=== PATIENT | male | born 1990 ===

== ENCOUNTER 2024-03-13 00:52 | Day surgery (SDC) | payer OTHER, SELFPAY ==
[2024-03-07 16:10] VITALS: BMI 34.1
--- NOTE | 2024-03-12 10:04 | P.PNAN_ITS ---
Anes - Initial Pre Proc Eval Procedure: Operation Date: 03/13/24 09:00 Proposed Procedures p Esophagogastroduodenoscopy & Colonoscopy - Jose Suggs DO Date/Time: 03/12/24 10:04 Surgeon: Jose Suggs DO Pre Op Diagnosis: IBD, weight loss, abdominal pain Patient Data Age: 33 Gender: M Height: 1.85 m Weight: 117.25 kg Allergies Allergy/AdvReac Type Severity Reaction Status Date / Time No Known Allergies Allergy Verified 03/13/24 07:44 Home Medications ?Medication ?Instructions ?Recorded ?Confirmed ?Type aspirin 81 mg tablet,delayed 81 mg PO DAILY 03/07/24 03/13/24 History release (Adult Low Dose Aspirin) atorvastatin 20 mg tablet 20 mg PO HS 03/07/24 03/13/24 History hydrochlorothiazide 12.5 mg capsule 12.5 mg PO HS 03/07/24 03/13/24 History lisinopril 10 mg tablet 10 mg PO DAILY 03/07/24 03/13/24 History meloxicam 15 mg tablet 15 mg PO DAILY 03/07/24 03/13/24 History omeprazole 20 mg capsule,delayed 20 mg PO DAILY 03/07/24 03/13/24 History release sennosides 8.6 mg capsule (senna) 8.6 mg PO BID 03/07/24 03/13/24 History triamcinolone acetonide 0.1 % 1 applic topical BID 03/07/24 03/13/24 History topical cream Patient hx anesthesia problems: none Family hx anesthesia problems: none Results Review: All pre-operative results and documents have been reviewed as part of the pre- operative evaluation. [facility] Past Medical History Medical History (Updated 03/13/24 @ 08:06 by Jose Suggs DO) GERD (gastroesophageal reflux disease) Hypertension Hyperlipidemia Social History Social History Living arrangements: incarcerated Anes - Eval Final PreProcedure Day of Procedure 03/12/24 10:04 Patient weight: obese Heart: regular rate and rhythm Lungs: clear to auscultation Airway: Mallampati scale class II Neurological: alert and oriented Last oral intake: >/= 8 hours ASA classification: III Emergent: no Anesthetic plan: proceed Anesthesia type and monitoring: general GIVS and standard monitoring Results Review: All pre-operative results and documents have been reviewed as part of the pre- operative evaluation. Informed Consent: The patient's anesthetic plan and its attendant risks and benefits were discussed with the patient/family/POA. Questions were solicited and answers provided to the satisfaction of the patient/family/POA.
[2024-03-13 07:38] VITALS: BP 161/92; PULSE 80; RESP 20; TEMP 35.9; O2SAT 97; BMI 36.3
--- NOTE | 2024-03-13 08:04 | PM.IMHP ---
H&P: HPI History of Present Illness Date/Time: 03/13/24 08:04 Chief Complaint: Abdominal pain, GERD Narrative: this is a 33-year-old man who presents with right upper quadrant pain. He has also been experiencing some GERD symptoms and takes Prilosec. He has never had a colonoscopy before. 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 Review of Systems Review of Systems: All systems reviewed & are unremarkable except as noted in HPI and below Constitutional: Constitutional: Denies chills, Denies fever(s), Denies headache(s) and Denies weight loss Eyes: Eyes: Denies change in vision ENT: Denies dizziness, Denies headache(s), Denies neck mass and Denies throat swelling Cardiovascular: Cardiovascular: Denies chest pain, Denies lightheadedness and Denies dyspnea Respiratory: Respiratory: Denies cough, Denies dyspnea and Denies wheezing Gastrointestinal: Gastrointestinal: Denies abdominal pain, Denies change in bowel habits, Denies nausea and Denies vomiting Genitourinary: Genitourinary: Denies hematuria and Denies dysuria Musculoskeletal: Musculoskeletal: Reports as per HPI Integumentary/Breasts: Skin/Breast: Reports as per HPI Neurologic: Denies dizziness and Denies headache(s) Allergic/Immunologic: Allergic/Immunologic: Denies throat swelling and Denies wheezing [facility] Past Medical History Medical History (Updated 03/13/24 @ 08:06 by Jose Suggs DO) GERD (gastroesophageal reflux disease) Hypertension Hyperlipidemia Social History Social History Living arrangements: incarcerated Meds Home Medications and Allergies Home Medications ?Medication ?Instructions ?Recorded ?Confirmed ?Type aspirin 81 mg tablet,delayed 81 mg PO DAILY 03/07/24 03/13/24 History release (Adult Low Dose Aspirin) atorvastatin 20 mg tablet 20 mg PO HS 03/07/24 03/13/24 History hydrochlorothiazide 12.5 mg capsule 12.5 mg PO HS 03/07/24 03/13/24 History lisinopril 10 mg tablet 10 mg PO DAILY 03/07/24 03/13/24 History meloxicam 15 mg tablet 15 mg PO DAILY 03/07/24 03/13/24 History omeprazole 20 mg capsule,delayed 20 mg PO DAILY 03/07/24 03/13/24 History release sennosides 8.6 mg capsule (senna) 8.6 mg PO BID 03/07/24 03/13/24 History triamcinolone acetonide 0.1 % 1 applic topical BID 03/07/24 03/13/24 History topical cream Allergies Allergy/AdvReac Type Severity Reaction Status Date / Time No Known Allergies Allergy Verified 03/13/24 07:44 Vital Signs Vital Signs - 24 hr 03/13/24 07:38 Temperature 96.6 F L Pulse Rate 80 Respiratory Rate 20 Blood Pressure 161/92 H Pulse Oximetry 97 Oxygen Delivery Room Air Exam Const: General: no acute distress and alert Orientation/consciousness: patient oriented x3 HENMT: Head: normocephalic and atraumatic Ears: hearing grossly normal bilaterally Face/Nose/Sinus: Normal nares present Mouth: Yes Normal oral and palatal mucosa present Eyes: Periorbital: periorbital findings normal Sclera: sclerae normal EOM: EOMs intact bilaterally Neck: Neck: normal visual inspection, no lymphadenopathy and trachea midline Chest: Chest palpation & inspection: normal inspection of the chest Resp: Effort & Inspection: normal respiratory effort Auscultation: clear to auscultation bilaterally Cardio: Jugular venous distension: no JVD Rate: regular rate Rhythm: regular rhythm Heart sounds: S1 normal heart sound present and S2 normal heart sound present Peripheral pulses: Peripheral pulses 2+ throughout GI: Inspection: normal to inspection GI Palp: Yes Soft to palpation, No Tenderness to palpation present (GI), No Guarding due to palpation present (GI) and No Rebound tenderness present Percussion: Yes normal to percussion Auscultation: normal bowel sounds : General: Yes no CVA tenderness Back/Spine/Pelvis: Back: no CVA tenderness Neuro: General: patient oriented x3, no focal motor deficits and CN's II-XI intact bilaterally Cognition (Neuro): normal cognition Speech: normal speech Motor exam (neuro): 5/5 motor strength present throughout Extrem: General: capillary refill normal and no clubbing, cyanosis or edema Assessment and Plan Assessment and plan (1) Change in bowel habit: Code(s): R19.4 - Change in bowel habit Status: Acute Assessment and Plan: I have recommended EGD and colonoscopy. I have discussed the procedure, risks, benefits, and alternatives. Questions were answered. Patient is agreeable to proceed. (2) RUQ pain: Code(s): R10.11 - Right upper quadrant pain Status: Acute (3) Weight loss: Code(s): R63.4 - Abnormal weight loss Status: Acute
[2024-03-13] MEDS: LACTATED RINGERS 1,000 ML 150 ML IV CONT (08:15)
--- NOTE | 2024-03-13 08:49 | SUR.OPER ---
EGD: [id number] COLON:[id number]
[2024-03-13] MEDS: SIMETHICONE ORAL SUSPENSION 20 MG/0.3 ML 30 ML BOTTLE 0.6 ML IRRIGATION (08:58)
[2024-03-13 09:14] VITALS: BP 103/67; PULSE 67; RESP 18; O2SAT 98
[2024-03-13 09:24] VITALS: BP 119/83; PULSE 75; RESP 20; O2SAT 98
[2024-03-13 09:34] VITALS: BP 106/69; PULSE 70; RESP 20; O2SAT 98
--- OUTSIDE RECORDS SUMMARY | 2024-03-15 15:17 | XMS_ITS | Continuity of Care Document ---
Author Organization [facility] Address [address] [place] [id number] Phone Care Team Providers Care Tow Motor Driver Name Role Phone Gilberto Guzman Unavailable Unavailable Advance Directives Directive Yes / No Effective Date File Name No Information Encounters Encounter Description Practice Location Reason(s) For Visit Diagnoses Date Provider Providers Copied on Encounter [facility], [address] [place] [address], [facility], tel:[phone] *[facility] No Information Megan Macias. [address] [place] [address], [facility], . tel:[phone] Family History Family Member Type Diagnosis Age At Onset No Information Payers Payer name Insurance type Covered constitution party ID Authoriza tion(s) No Information Social History Type Description Quantity Date Captured Comments Sex Male Smoking Status No Information Chief Complaint And Reason For Visit No Information Reason For Referral Reason For Referral No Information History Of Present Illness Encounter Date Complaint History Of Prese nt Illness No Information Functional Status Date Functional Assessmen t No Information Instructions Date Instruction Additional Infor mation No Information Assessments Type Assessment Date No Information Patient Care Teams Name Effective Dates (start - stop) Status Members No Information
== END 2024-03-13 09:47 | disposition home or self-care (01) ==
PROVIDERS: Visit Provider Surgery
PROC: 0DJ08ZZ Inspection of Upper Intestinal Tract, Via Natural or Artificial Opening Endoscopic (ICD-10-PCS; CPT 45378; principal; 2024-03-13 09:00)
DX: K21.9 Gastro-esophageal reflux disease without esophagitis (principal); K63.89 Other specified diseases of intestine; I10 Essential (primary) hypertension; E78.5 Hyperlipidemia, unspecified; E66.9 Obesity, unspecified; Z68.36 Body mass index [BMI] 36.0-36.9, adult; Z79.82 Long term (current) use of aspirin
CPT/HCPCS: 43239; 45380; 88305; J2003; J2704; J7120